=== PATIENT | male | born 1985 | race Asian ===

== ENCOUNTER 2021-05-17 14:46 | Outpatient (REF) | payer SELFPAY ==
[2021-05-17 15:46] LABS: Binax Now Covid-19 Ag Negative (Negative)
[2021-05-17 15:47] LABS: Binax Internal Control QC Valid
== END 2021-05-17 14:47 | disposition home or self-care (01) ==
LOC: HO.LAB 14:46
PROVIDERS: Visit Provider Internal Medicine
DX: Z20.822 Contact with and (suspected) exposure to COVID-19 (principal)
CPT/HCPCS: C9803